=== PATIENT | male | born 1935 | race Hispanic/Latino ===

== ENCOUNTER → 2020-05-05 | Outpatient (CLI) | payer MEDICARE, OTHER ==
[~2020-05-05] MED LIST: ALPR0.5T PO; BIMA12.5OS OU; BRIM5DRO OU; CHOL200074 PO; ENAL2.5T16 PO; GLIP10TA9 PO; METF-444 PO
== END | disposition home or self-care (01) ==
LOC: RAH 12:28
PROVIDERS: ATTEND Family Medicine
DX: G31.1 Senile degeneration of brain, not elsewhere classified (principal); I67.82 Cerebral ischemia; R55 Syncope and collapse
CPT/HCPCS: 70450